=== PATIENT | female | born 1940 | race Caucasian/White ===

== ENCOUNTER 2016-04-17 14:49 | Inpatient (IN) | payer MEDICARE, OTHER ==
[2016-04-17] MEDS ORDERED: 0.9 % SODIUM CHLORIDE 1,000 ML BAG IV ONE (17:01)
--- NOTE | 2016-04-17 17:07 | Emergency Department Record ---
History of Present Illness - General Chief complaint: Nausea, Vomiting, Diarrhea Stated complaint: DIARRHEA Time Seen by Provider: 04/17/16 16:56 Source: Patient, RN notes reviewed Mode of Arrival: Ambulatory - History of Present Illness Initial comments: vomiting and diarrhea for two days and abdominal bloating and she has DM with multiple abdominal surgeries MD complaint: Diarrhea, Vomiting Onset/Timin -: Days(s) Description of Vomiting: Watery Associated Abdominal Pain: Yes Location: Diffuse Radiation: None Severity scale (1-10): 6 Quality: Cramping Consistency: Constant Improves with: None Worsens with: None Associated Symptoms: Denies other symptoms - Related Data Home Medications Medication Instructions Recorded Confirmed Last Taken Duloxetine HCl [Cymbalta] 90 mg PO DAILY 03/17/14 04/17/16 1 Day Ago Insulin Aspart [Novolog Flexpen] 40 units SQ ASDIR 03/17/14 04/17/16 1 Day Ago Insulin NPL/Insulin Lispro 130 units SQ ASDIR 03/17/14 04/17/16 03/17/14 [Humalog Mix 50-50 Kwikpen] Atorvastatin Calcium [Lipitor] 40 mg PO DAILY 04/17/16 04/17/16 Unknown Insulin Degludec [Tresiba 1 unit SQ ASDIR 04/17/16 04/17/16 Unknown Flextouch U-100] Lisinopril [Lisinopril] 5 mg PO DAILY 04/17/16 04/17/16 Unknown Allergies Allergy/AdvReac Type Severity Reaction Status Date / Time codeine Allergy Unknown ALTERED Verified 03/17/14 16:12 MENTAL STATUS levofloxacin Allergy Unknown VOMITING Verified 03/17/14 16:12 Quinolones Allergy Unknown ALTERED Verified 03/17/14 16:12 MENTAL STATUS Allergies: Allergy Unknown ALTERED Uncoded 03/17/14 16:12 MENTAL STATUS Travel Screening - Travel/Exposure Within Last 30 Days Have you traveled within the last 30 days?: No Review of Systems Reviewed: No additional complaints except as noted below Constitutional: Reports: As per HPI. Denies: Chills, Fever, Malaise, Night sweats, Weakness, Weight change Eyes: Reports: As per HPI. Denies: Eye discharge, Eye pain, Photophobia, Vision change ENT: Reports: As per HPI. Denies: Congestion, Dental pain, Ear pain, Epistaxis , Hearing loss, Throat pain Respiratory: Reports: As per HPI. Denies: Cough, Dyspnea, Hemoptysis, Stridor, Wheezes Cardiovascular: Reports: As per HPI. Denies: Arrhythmia, Chest pain, Dyspnea on exertion, Edema, Murmurs, Orthopnea, Palpitations, Paroxysmal nocturnal dyspnea, Rheumatic Fever, Syncope Endocrine: Reports: As per HPI. Denies: Fatigue, Heat or cold intolerance, Polydipsia, Polyuria Gastrointestinal: Reports: As per HPI, Diarrhea, Vomiting. Denies: Abdominal pain, Constipation, Hematemesis, Hematochezia, Melena, Nausea Genitourinary: Reports: As per HPI. Denies: Abnormal menses, Discharge, Dyspareunia, Dysuria, Frequency, Hematuria, Incontinence, Retention, Urgency Musculoskeletal: Reports: As per HPI. Denies: Arthralgia, Back pain, Gout, Joint swelling, Myalgia, Neck pain Skin: Reports: As per HPI. Denies: Bruising, Change in color, Change in hair/ nails, Lesions, Pruritus, Rash Neurological: Reports: As per HPI. Denies: Abnormal gait, Confusion, Headache, Numbness, Paresthesias, Seizure, Tingling, Tremors, Vertigo, Weakness Psychiatric: Reports: As per HPI. Denies: Anxiety, Auditory hallucinations, Depression, Homicidal thoughts, Suicidal thoughts, Visual hallucinations Hematological/Lymphatic: Reports: As per HPI. Denies: Anemia, Blood Clots, Easy bleeding, Easy bruising, Swollen glands Past Medical History - SOCIAL HISTORY Smoking Status: Former smoker Alcohol Use: None Drug Use: None - RESPIRATORY Hx Respiratory Disorders: No - CARDIOVASCULAR Hx Cardio Disorders: Yes Hx Chest Pain: Yes - NEURO Hx Neuro Disorders: No - GI Hx GI Disorders: No - Hx Genitourinary Disorders: No - ENDOCRINE Hx Endocrine Disorders: Yes Hx Diabetes: Yes - MUSCULOSKELETAL Hx Musculoskeletal Disorders: No - PSYCH Hx Psych Problems: Yes Hx Depression: Yes - HEMATOLOGY/ONCOLOGY Hx Hematology/Oncology Disorders: No Family Medical History Any Significant Family History?: Yes Hx Heart Disease: Grandparents Hx Stroke: Grandparents Physical Exam - General General Appearance: Alert, Oriented x3, Cooperative, No acute distress - Head Head exam: Normal inspection - Eye Eye exam: Normal appearance, PERRL Pupils: Normal accommodation - ENT ENT exam: Normal exam, Mucous membranes moist, Normal external ear exam, Normal orophraynx, TM's normal bilaterally Ear exam: Normal external inspection. negative: External canal tenderness Nasal Exam: Normal inspection. negative: Discharge, Sinus tenderness Mouth exam: Normal external inspection, Tongue normal Teeth exam: Normal inspection. negative: Dental caries Throat exam: Normal inspection. negative: Tonsillar erythema, Tonsillar exudate - Neck Neck exam: Normal inspection, Full ROM. negative: Tenderness - Respiratory Respiratory exam: Normal lung sounds bilaterally. negative: Respiratory distress - Cardiovascular Cardiovascular Exam: Regular rate, Normal rhythm, Normal heart sounds - GI/Abdominal GI/Abdominal exam: Soft, Normal bowel sounds, Distended, Tenderness - Rectal Rectal exam: Deferred - exam: Deferred - Extremities Extremities exam: Normal inspection, Full ROM, Normal capillary refill. negative: Tenderness - Back Back exam: Reports: Normal inspection, Full ROM. Denies: Muscle spasm, Rash noted, Tenderness - Neurological Neurological exam: Alert, Normal gait, Oriented X3, Reflexes normal - Psychiatric Psychiatric exam: Normal affect, Normal mood - Skin Skin exam: Dry, Intact, Normal color, Warm Course Vital Signs 04/17/16 15:58 Pulse Rate 114 H Respiratory 20 Rate Blood Pressure 146/100 Pulse Ox 97 Medical Decision Making - Lab Data Result diagrams: 04/17/16 17:20 04/17/16 17:20 Disposition Clinical Impression: Diabetic ketoacidosis Qualifiers: Diabetes mellitus type: type 2 Decision to Admit: Admit from ER Condition: (2) Stable Forms: Patient Portal Access Time of Disposition: 18:47
[2016-04-17 17:30] LABS: HEMATOCRIT 46.8 % (35.0-47.0); HEMOGLOBIN 14.9 gm/dl (11.6-16.0); MEAN CELL VOLUME 91.2 fl (81-97); MEAN CORPUSCULAR HGB CONC 31.8 g/dl (32-36); MEAN PLATELET VOLUME 10.9 fl (7.4-10.4); PLATELET COUNT 390 K/uL (130-400); RED BLOOD COUNT 5.13 M/uL (3.80-5.40); RED CELL DISTRIBUTION WIDTH 14.1 % (11.5-14.5); WHITE BLOOD COUNT W/O DIFF 10.2 K/uL (4.2-12.2)
[2016-04-17 17:39] LABS: ACETONE,SERUM NEGATIVE (NEGATIVE); PLATELET ESTIMATE NORMAL (NORMAL)
[2016-04-17 17:43] LABS: ALBUMIN 4.4 gm/dL (3.5-5.0); ALKALINE PHOSPHATASE 114 U/L (38-126); ALT/SGPT 48 U/L (9-52); ANION GAP 20.1 (7-16); AST/SGOT 47 U/L (14-36); BILIRUBIN,TOTAL 0.76 mg/dL (0.2-1.3); BLOOD UREA NITROGEN 42 mg/dL (7-17); CARBON DIOXIDE 17.9 mmol/L (22-30); CREATININE 1.6 mg/dL (0.52-1.04); EST GLOMERULAR FILTRATION RATE 34 ml/min; LIPASE 41 U/L (23-300); TOTAL PROTEIN 7.8 gm/dL (6.3-8.2)
[2016-04-17 17:50] LABS: GLUCOSE,RANDOM 556 mg/dL (70-110)
[2016-04-17] MEDS ORDERED: 0.9 % SODIUM CHLORIDE 500ML 500 ML IV SCH (18:30)
[2016-04-17] MEDS ORDERED: HUMULIN R 100 UNIT/ML VIAL SC ONE (18:41)
[2016-04-17] MEDS ORDERED: HUMULIN R 100 UNIT/ML VIAL IV ONE (18:41)
[2016-04-17] MEDS ORDERED: 0.9 % SODIUM CHLORIDE 1000ML 1,000 ML IV PRN (18:59)
[2016-04-17] MEDS ORDERED: INSULIN REGULAR, HUMAN 100 UNIT in 0.9 % SODIUM CHLORIDE 100ML 100 ML IV SCH ×2 (19:00)
[2016-04-17 20:20] LABS: ACETONE,SERUM NEGATIVE (NEGATIVE); ANION GAP 19.3 (7-16); CARBON DIOXIDE 17.7 mmol/L (22-30)
[2016-04-17] MEDS ORDERED: POTASSIUM CHLORIDE 20 MEQ TABLET PO ONE (21:52)
[2016-04-17] MEDS ORDERED: DEXTROSE IV PRN (22:03)
[2016-04-17] MEDS ORDERED: SODIUM CHLORIDE 0.45% IV PRN (22:03)
[2016-04-18 00:31] LABS: ANION GAP 15.8 (7-16); CARBON DIOXIDE 19.2 mmol/L (22-30)
[2016-04-18 00:39] LABS: ACETONE,SERUM NEGATIVE (NEGATIVE)
[2016-04-18 04:12] LABS: ACETONE,SERUM NEGATIVE (NEGATIVE)
[2016-04-18 04:19] LABS: ANION GAP 15.3 (7-16); CARBON DIOXIDE 19.7 mmol/L (22-30)
--- NOTE | 2016-04-18 07:20 | RADIOLOGY REPORT ---
EXAM: ACUTE ABDOMEN SERIES HISTORY: DIARRHEA AND VOMITING FOR TWO DAYS. TECHNIQUE: Frontal view of the chest and three views of the abdomen were obtained. Comparison: None. FINDINGS: The lungs are clear. The cardiomediastinal silhouette, diaphragm, and osseous structures are unremarkable. No free air. Gaseous prominence of the small and large bowel throughout the abdomen. No suspicious calcification. IMPRESSION: 1. NEGATIVE CHEST EXAMINATION. 2. NO FREE AIR. 3. GASEOUS PROMINENCE OF THE SMALL AND LARGE BOWEL THROUGHOUT THE ABDOMEN WHICH MAY REFLECT PARALYTIC ILEUS. JOB NUMBER: [id number] MTDD
[2016-04-18 07:25] LABS: ANION GAP 14.6 (7-16); CARBON DIOXIDE 18.4 mmol/L (22-30); GLUCOSE,RANDOM 289 mg/dL (70-110)
[2016-04-18 07:27] LABS: ACETONE,SERUM NEGATIVE (NEGATIVE)
[2016-04-18] MEDS ORDERED: DEXTROSE 5 %-0.45 % NACL 1,000 ML IV PRN (08:20)
[2016-04-18] MEDS: LISINOPRIL 5 MG TABLET PO SCH (09:19)
[2016-04-18] MEDS: DULOXETINE HCL 30 MG CAPSULE.DR PO SCH (09:19)
[2016-04-18] MEDS: ATORVASTATIN 20 MG TABLET PO SCH (09:20)
--- NOTE | 2016-04-18 09:22 | History and Physical Report ---
CHIEF COMPLAINT: Vomiting and diarrhea for two days. HISTORY OF CHIEF COMPLAINT: This 75-year-old female presented with abdominal bloating, vomiting, and diarrhea which started two days ago. She said the diarrhea started first about 10-15 times per day and then the vomiting started one day prior. She has diabetes mellitus and is on insulin. She has had multiple abdominal surgeries. The patient was seen in the Emergency Department by myself and diagnosed with hyperglycemic nonketotic acidosis and admitted to the hospital for IV fluids, insulin drip and further evaluation. PAST MEDICAL HISTORY: Diabetes mellitus, depression, hypercholesterolemia, and she has had urinary tract infections in the past. PAST SURGICAL HISTORY: Cholecystectomy, appendectomy, tonsillectomy, hysterectomy and left knee surgery. MEDICATIONS ON ADMISSION: She is on a Humalog mix of 50/50 - she takes 130 units in the morning and 120 units at 5:00 p.m., she also uses Tresiba 60 units a day, Atorvastatin 40 mg daily, Lisinopril 5 mg q daily, and Cymbalta 90 mg daily. ALLERGIES: CODEINE CAUSES MENTAL STATUS CHANGES, LEVAQUIN CAUSES VOMITING, AND QUINOLONE CAUSES MENTAL STATUS CHANGES. FAMILY/PSYCHOSOCIAL HISTORY: Former smoker. No alcohol or drug use. Grandparents had heart disease and strokes. REVIEW OF SYSTEMS: HEENT: No upper respiratory infectious symptoms, cough, cold or congestion. Cardiovascular: No chest pain, palpitations, or arrhythmias. Respiratory: No shortness of breath, cough, cold or congestion. Gastrointestinal: Vomiting and diarrhea - see the chief complaint, and some left upper quadrant abdominal pain. Genitourinary: No dysuria, hematuria, frequency, or burning on urination. Musculoskeletal: No joint or bone abnormalities. Neurologic: No CVA, paralysis, or paresthesias at this time. Gynecological: She had a hysterectomy. No lumps in her breasts. Endocrine: She has diabetes mellitus. She has been on insulin about 10 years. Her diabetes started at about [id number]age. Integument: No rash, change in moles, or yellow skin. She does have an ulcer on her foot. PHYSICAL EXAMINATION: This is a 75-year-old female. Height is 5'5", weight is 259 pounds. Vital signs - Temperature is 97.5, pulse is 92, blood pressure is 139/72, respiratory rate is 20, pulse ox is 98% on room air. HEENT: Pupils are equal, round and reactive to light and accommodation. Extraocular muscles are intact. Throat is clear. Nose is clear. Tympanic membranes are nelson. NECK: Supple. No jugular venous distention. No hepatojugular reflex. No carotid bruits. Thyroid is smooth. CARDIOVASCULAR: Regular rate and rhythm without murmurs, clicks, rubs or gallops. RESPIRATORY: Clear to auscultation. Breath sounds are equal bilaterally. ABDOMEN: Distended and painful left upper quadrant. It is diffusely painful all over last night. EXTREMITIES: No pitting edema. No cyanosis. No clubbing. Full range of motion. Peripheral pulses are good. BREASTS: Deferred. GYNECOLOGICAL: Deferred. RECTAL: Deferred. NEUROLOGICAL: Cranial nerves II through XII intact. No gross defects. Sensation normal. Strength normal. Deep tendon reflexes are equal bilaterally. Babinski's negative. MENTAL STATUS: Alert and oriented times three. IMPRESSION: 1. HYPERGLYCEMIC NONKETOTIC ACIDOSIS. 2. VOMITING AND DIARRHEA. 3. HYPERCHOLESTEROLEMIA. 4. DEPRESSION. 5. DIABETES MELLITUS TYPE 2. 6. DEHYDRATION. PLAN: Insulin drip, IV fluids, and further evaluation. Cam Bernal D.O. Date & Time JOB NUMBER: [id number] MTDD
[2016-04-18 12:49] LABS: CREATININE 1.1 mg/dL (0.52-1.04)
[2016-04-18] MEDS: ONDANSETRON HCL IV 4 MG/2 ML VIAL IVP PRN (13:05)
[2016-04-18 16:29] LABS: ANION GAP 14.8 (7-16); CARBON DIOXIDE 19.2 mmol/L (22-30)
[2016-04-18] MEDS ORDERED: NOVOLOG 70/30 FLEXPEN 100 UNITS/ML SQ SCH (17:15)
[2016-04-19 00:59] LABS: CRYPTOSPORIDIUM PARVUM ANTIGEN NOT DETECTED (NOT DETECT); GIARDIA LAMBLIA ANTIGEN NOT DETECTED (NOT DETECT)
[2016-04-19] MEDS ORDERED: NOVOLOG 70/30 FLEXPEN 100 UNITS/ML SQ SCH (07:45)
[2016-04-19] MEDS: ONDANSETRON HCL IV 4 MG/2 ML VIAL IVP PRN (08:39)
[2016-04-19] MEDS ORDERED: NOVOLOG 70/30 FLEXPEN 100 UNITS/ML SQ ONE (09:22)
[2016-04-19] MEDS: LISINOPRIL 5 MG TABLET PO SCH (09:40)
[2016-04-19] MEDS: DULOXETINE HCL 30 MG CAPSULE.DR PO SCH (09:40)
[2016-04-19] MEDS: ATORVASTATIN 20 MG TABLET PO SCH (09:44)
[2016-04-19 10:12] LABS: ANION GAP 16.7 (7-16); CARBON DIOXIDE 19.3 mmol/L (22-30); CREATININE 1.1 mg/dL (0.52-1.04)
[2016-04-19] MEDS: ENOXAPARIN 40 MG/0.4 ML SYR SQ SCH (12:20)
[2016-04-19] MEDS: NAPROXEN 250 MG TABLET PO SCH ×2 (12:20→21:49)
[2016-04-19] MEDS: DOXYCYCLINE HYCLATE 100 MG CAPSULE PO SCH ×2 (14:28→21:49)
[2016-04-19] MEDS: NOVOLOG 70/30 FLEXPEN 100 UNITS/ML SQ SCH (17:37)
[2016-04-20 06:42] LABS: ANION GAP 13.7 (7-16); CARBON DIOXIDE 20.3 mmol/L (22-30)
[2016-04-20] MEDS: NOVOLOG 70/30 FLEXPEN 100 UNITS/ML SQ SCH (08:16)
[2016-04-20] MEDS: NAPROXEN 250 MG TABLET PO SCH (09:41)
[2016-04-20] MEDS: DULOXETINE HCL 30 MG CAPSULE.DR PO SCH (09:41)
[2016-04-20] MEDS: LISINOPRIL 5 MG TABLET PO SCH (09:41)
[2016-04-20] MEDS: ATORVASTATIN 20 MG TABLET PO SCH (09:41)
[2016-04-20] MEDS: DOXYCYCLINE HYCLATE 100 MG CAPSULE PO SCH (09:41)
[2016-04-20] MEDS: ENOXAPARIN 40 MG/0.4 ML SYR SQ SCH (09:42)
[2016-04-20] MEDS: ONDANSETRON HCL IV 4 MG/2 ML VIAL IVP PRN (10:43)
--- NOTE | 2016-04-20 13:04 | Discharge Note ---
Discharge Note - Date Date of Discharge Note: 04/20/16 Disposition: Home, Self-Care Condition: (1) Good Additional Instructions: follow up with Dr. Porter next week Maalox or lacyta for nausea 15 ml after meals and bedtime Decrease home insulin humalog 50/50 mix to 60 units BID and increase as the glucose goes up. continue rest of home meds doxycline 100 mg BID for 7 days for cellulitis of the foot follow up with Chief Mechanical Engineer on foot ulcer as scheduled Prescriptions: Doxycycline Hyclate [Vibramycin] 100 mg PO BID #14 capsule Forms: Patient Portal Access
[2016-04-20] MEDS ORDERED: NOVOLOG 70/30 FLEXPEN 100 UNITS/ML SQ SCH (17:15)
--- NOTE | 2016-04-22 12:40 | Discharge Summary ---
DATE OF DISCHARGE: 04/20/2016 at 12:45 p.m. DISCHARGE DIAGNOSES: 1. Hyperglycemic nonketotic acidosis, resolved. 2. Viral gastroenteritis. 3. Diarrhea. 4. Diabetes mellitus, type 2. 5. Cellulitis of the right foot around an ulcer. 6. Ulcer of the right foot, being treated by the ruffling machine operator. 7. Dehydration which has resolved. 8. Hypercholesterolemia. ATTENDING PHYSICIAN: Cam Bernal D.O. REASON FOR HOSPITALIZATION: Vomiting and diarrhea for two days. HISTORY OF THE PRESENT ILLNESS: This 75-year-old female presented with abdominal bloating, vomiting and diarrhea which started two days ago. She said the diarrhea started first about 10 to 15 times per day. The vomiting then started one day prior to admission. She has diabetes mellitus and is on insulin. She has had multiple surgeries. The patient was evaluated in the emergency department by myself and was diagnosed with hyperglycemic nonketotic acidosis. She was admitted to the hospital for intravenous fluids, insulin drip , and further evaluation. SIGNIFICANT FINDINGS: LABORATORY DATA: White blood cell count was 10,200, hemoglobin was 14.9. Her glucose was 556 when she came in to the emergency department. Her potassium was 4.4, C02 was 17. Her anion gap was 20.1. The BUN was 42 and creatinine was 1.6. Her acetone was negative. C. difficile toxin was negative. Giardia was negative. Cryptosporidium parvum was negative. Her labs improved, and on the day of discharge her potassium was 4.4, sodium was 141, and chloride was 107. C02 was 20.3. BUN was 17, creatinine was 1.0. The random glucose before lunch was 161. DIAGNOSTIC DATA: Negative chest x-ray. Abdominal x-ray showed no free air. Gaseous prominence in small and large bowel throughout the abdomen which may reflect paralytic ileus. THERAPY PROVIDED: The patient was placed on an insulin drip which was titrated down as her diabetic acidosis resolved. She was switched over to the insulin regimen which is the closest that we have in the hospital with NovoLog 70/30 twice a day. Her sugars were maintained for 24 hours at a reasonable level. She was eating and drinking. She had no more diarrhea. No vomiting. She had a little bit of indigestion when she would eat. The foot ulcer bandage was changed. On it showed some erythema around the ulcer which is concerning. The patient said she did not think that was there previously. She was started on doxycycline 100 mg b.i.d. to control that. CONDITION AT DISCHARGE: Much improved. DISCHARGE INSTRUCTIONS: Follow up with Dr. Porter in three or four days. She states that she has an appointment with her next week. Keeping that appointment would be very good. Doxycycline 100 mg for seven more days to help the cellulitis around the ulcer. Maalox 15 mg q.i.d. after meals and at bedtime for nausea and indigestion. Continue her home medications including: Tresiba one shot a day, Cymbalta 90 mg daily, Lipitor 40 mg daily, lisinopril 5.0 mg daily. Back to her normal insulin at home which is Humalog mix 50/50. I am going to reduce her dosage to 60 units twice a day before breakfast and at 5:00 p.m. until her sugar starts to come up. She had a little bit of a low sugar in the hospital last night of about 61 in the middle of the night. She is probably because she is not back to eating her normal levels at this time. I told her that she will probably have to increase her levels since she was on almost twice that amount when she was at home. Cam Bernal D.O. Date Time JOB NUMBER: [id number] MTDD
== END 2016-04-20 13:46 | disposition home or self-care (01) | DRG 638 ==
LOC: ER 14:49 → MEDSURG 19:28
PROVIDERS: ADMIT Emergency Medicine; ATTEND Emergency Medicine
DX: R11.10 Vomiting, unspecified (principal); R19.7 Diarrhea, unspecified; E11.65 Type 2 diabetes mellitus with hyperglycemia; L03.115 Cellulitis of right lower limb; E11.69 Type 2 diabetes mellitus with other specified complication; Z79.4 Long term (current) use of insulin; A08.4 Viral intestinal infection, unspecified; E78.00 Pure hypercholesterolemia, unspecified; E86.0 Dehydration
CPT/HCPCS: 99285 ×2; 96365; 96361; 83690; 80076; 80048; 36416; 82009; 85027; 74022; J1815 ×2; 80051; 82947; 82948; 87329; 87493; 99223; 99239; J1650; J2405; J7030; J7040